=== PATIENT | female | born 1995 ===

== ENCOUNTER 2024-04-27 11:36 | Outpatient (CLI) | payer OTHER | END 2024-04-27 11:39 | disposition home or self-care (01) | LOC: PRENATAL 11:36 | PROVIDERS: ATTEND Obstetrics & Gynecology Maternal & Fetal Medicine | DX: O36.80X0 Pregnancy with inconclusive fetal viability, not applicable or unspecified (principal); Z36.82 Encounter for antenatal screening for nuchal translucency; O34.10 Maternal care for benign tumor of corpus uteri, unspecified trimester; Z3A.11 11 weeks gestation of pregnancy ==

== ENCOUNTER 2024-06-25 10:30 | Outpatient (CLI) | payer OTHER | END 2024-06-25 10:31 | disposition home or self-care (01) | LOC: PRENATAL 10:30 | PROVIDERS: ATTEND Obstetrics & Gynecology Maternal & Fetal Medicine | DX: O35.9XX0 Maternal care for (suspected) fetal abnormality and damage, unspecified, not applicable or unspecified (principal); O35.3XX0 Maternal care for (suspected) damage to fetus from viral disease in mother, not applicable or unspecified; O44.02 Complete placenta previa NOS or without hemorrhage, second trimester; O34.12 Maternal care for benign tumor of corpus uteri, second trimester; Z3A.20 20 weeks gestation of pregnancy ==

== ENCOUNTER 2024-09-17 09:20 | Outpatient (CLI) | payer OTHER | END 2024-09-17 09:21 | disposition home or self-care (01) | LOC: PRENATAL 09:20 | PROVIDERS: ATTEND Obstetrics & Gynecology Maternal & Fetal Medicine | DX: O26.849 Uterine size-date discrepancy, unspecified trimester (principal); O36.8199 Decreased fetal movements, unspecified trimester, other fetus; O34.10 Maternal care for benign tumor of corpus uteri, unspecified trimester; Z3A.32 32 weeks gestation of pregnancy ==

== ENCOUNTER 2024-10-02 17:10 | Outpatient (CLI) | payer OTHER ==
[~2024-10-02] VITALS: Ht 167.6 cm; Wt 96.2 kg
[2024-10-02 17:22] VITALS: BP 105/67
[2024-10-02 19:46] LABS: URINE APPEARANCE Clear; URINE BILIRRUBIN Negative (NEGATIVE); URINE BLOOD Negative; URINE COLOR Yellow; URINE GLUCOSE Negative (NEGATIVE); URINE KETONE Negative (NEGATIVE); URINE LEUKOCYTE Moderate; URINE NITRATE Negative; URINE PROTEIN Negative (NEGATIVE); URINE UROBILINOGEN 0.2 E.U./dl
[2024-10-02 19:46] LABS: HEMATOCRIT 35.5 % (36.0-45.00); MEAN CORPUSCULAR HEMOGLOBIN 30.4 pg (27.00-32.0); MEAN CORPUSCULAR HGB CONC 33.8 g/dl (32.0-36.0); PLATELET COUNT 231 K/uL (150-450); RED BLOOD COUNT 3.94 M/uL (4.00-6.00); RED CELL DISTRIBUTION WIDTH 12.9 % (11.5-14.5)
[2024-10-02 19:48] LABS: URINE BACTERIA 2473.2 uL (0.0-1933); URINE EPITHELIAL CELLS 92.7 uL (0.0-38.8); URINE RBC 2.9 uL (0.0-20.8); URINE WBC 311.2 uL (0.0-23.2)
[2024-10-02 20:00] VITALS: BP 112/73
[2024-10-02 20:07] LABS: URINE CAST 0.61 uL (0.0-1.40)
[2024-10-02 20:13] LABS: INR 0.95; PARTIAL THROMBOPLASTIN TIME 30.2 SECONDS (22.0-34.0); PROTHROMBIN TIME 10.4 SECONDS (9.0-11.5)
[2024-10-02 20:16] LABS: ALBUMIN 2.9 gm/dL (3.4-5.0); BILIRUBIN TOTAL 0.35 mg/dL (0.3-1.2); CALCIUM 8.7 mg/dL (8.5-10.1); CREATININE SERUM 0.5 mg/dL (0.55-1.02); GLOBULINA 3.6 G/DL (2.4-3.5); POTASSIUM 4.05 mEq/L (3.5-5.1); TOTAL PROTEIN 6.5 gm/dL (6.4-8.2)
[2024-10-02] MEDS ORDERED: PRENATAL DHA200 MG PO (20:36)
[2024-10-02] MEDS ORDERED: RINGERS SOLUTION,LACTATED 1,000 ML IV SCH (22:00)
[2024-10-02 23:24] VITALS: BP 94/62
[2024-10-03 03:06] VITALS: BP 92/60
[2024-10-03 06:17] VITALS: BP 110/70; O2SAT 97
== END 2024-10-03 09:38 | disposition home or self-care (01) ==
LOC: LDR 17:10 → OBS/DEL 17:10 → LDR 10-03 09:38 → EDSTATUS 10-09 14:13
PROVIDERS: ATTEND General Practice
DX: O26.893 Other specified pregnancy related conditions, third trimester (principal); O16.3 Unspecified maternal hypertension, third trimester; Z3A.34 34 weeks gestation of pregnancy

== ENCOUNTER 2024-10-16 15:02 | Outpatient (CLI) | payer OTHER ==
[~2024-10-16] VITALS: Ht 167.6 cm; Wt 97.1 kg
[~2024-10-16 15:02] MED LIST: PRENATAL DHA200 MG PO
[2024-10-16 15:56] VITALS: BP 126/84
[2024-10-16] MEDS ORDERED: BETAMETHASONE ACETATE,SOD PHOS 30 MG/5 ML ML IM ONE (16:30)
[2024-10-16 16:52] LABS: MEAN CELL VOLUME 90.1 fL (80.00-100.00); MEAN CORPUSCULAR HEMOGLOBIN 30.8 pg (27.00-32.0); MEAN CORPUSCULAR HGB CONC 34.2 g/dl (32.0-36.0); PLATELET COUNT 241 K/uL (150-450); RED BLOOD COUNT 4.22 M/uL (4.00-6.00)
[2024-10-16 16:52] LABS: PH,URINE 6.5 (5.0-8.0); URINE APPEARANCE Clear; URINE BILIRRUBIN Negative (NEGATIVE); URINE BLOOD Negative; URINE COLOR Yellow; URINE GLUCOSE Negative (NEGATIVE); URINE KETONE Negative (NEGATIVE); URINE LEUKOCYTE Small; URINE NITRATE Negative; URINE PROTEIN Negative (NEGATIVE); URINE UROBILINOGEN 0.2 E.U./dl
[2024-10-16 16:55] LABS: URINE BACTERIA 680.3 uL (0.0-1933); URINE EPITHELIAL CELLS 20.1 uL (0.0-38.8); URINE RBC 3.3 uL (0.0-20.8); URINE WBC 53.9 uL (0.0-23.2)
[2024-10-16 16:56] LABS: URINE CAST 0.29 uL (0.0-1.40)
[2024-10-16 17:22] LABS: INR 0.94; PARTIAL THROMBOPLASTIN TIME 29.9 SECONDS (22.0-34.0); PROTHROMBIN TIME 10.3 SECONDS (9.0-11.5)
[2024-10-16 17:27] LABS: BILIRUBIN TOTAL 0.36 mg/dL (0.3-1.2); CREATININE SERUM 0.6 mg/dL (0.55-1.02); GFR 119.92; GLOBULINA 3.8 G/DL (2.4-3.5); POTASSIUM 4.95 mEq/L (3.5-5.1); TOTAL PROTEIN 6.8 gm/dL (6.4-8.2)
[2024-10-16] MEDS ORDERED: RINGERS SOLUTION,LACTATED 1,000 ML IV SCH (19:00)
[2024-10-16 19:28] VITALS: BP 117/77
[2024-10-16] MEDS ORDERED: PRENATAL TABLE1 EAC1 PO (19:52)
[2024-10-16 23:08] VITALS: BP 110/69
[2024-10-17 04:03] VITALS: BP 104/67
[2024-10-17 06:19] VITALS: BP 104/67; O2SAT 97
[2024-10-17 13:41] VITALS: BP 117/82
[2024-10-17 15:19] VITALS: BP 109/74
[2024-10-17] MEDS ORDERED: BETAMETHASONE ACETATE,SOD PHOS 30 MG/5 ML ML IM NR (16:30)
[2024-10-17] MEDS ORDERED: BETAMETHASONE ACETATE,SOD PHOS 30 MG/5 ML ML IM ONE (16:30)
[2024-10-17 17:13] LABS: CREATININE URINE RANDOM 56.7 MG/DL (30-125); URINE PROT QUANT 24HR 9.6 MG/DL
[2024-10-17 17:23] LABS: URINE PROT QUANT 24 HR 158.4 MG/24HR (42-225)
[2024-10-17 18:15] VITALS: BP 109/74
== END 2024-10-17 18:15 | disposition home or self-care (01) ==
LOC: OBS/DEL 15:02
PROVIDERS: ATTEND General Practice
DX: O13.3 Gestational [pregnancy-induced] hypertension without significant proteinuria, third trimester (principal); O26.849 Uterine size-date discrepancy, unspecified trimester; O36.8199 Decreased fetal movements, unspecified trimester, other fetus; Z3A.35 35 weeks gestation of pregnancy

== ENCOUNTER 2024-10-23 03:25 | Inpatient (IN) | payer OTHER ==
[~2024-10-23] VITALS: Ht 167.6 cm; Wt 95.7 kg
[2024-10-23] VITALS (9 sets, daily range): BP systolic 10–145; BP diastolic 72–99
[~2024-10-23 03:25] MED LIST changes: +PRENATAL TABLE1 EAC1 PO
[2024-10-23] MEDS ORDERED: RINGERS SOLUTION,LACTATED 1,000 ML IV SCH (05:15)
[2024-10-23 05:22] LABS: PH,URINE 6.5 (5.0-8.0); URINE APPEARANCE Clear; URINE BILIRRUBIN Negative (NEGATIVE); URINE BLOOD Negative; URINE COLOR Yellow; URINE GLUCOSE Negative (NEGATIVE); URINE KETONE Negative (NEGATIVE); URINE LEUKOCYTE Negative; URINE NITRATE Negative; URINE PROTEIN Negative (NEGATIVE)
[2024-10-23 05:25] LABS: URINE BACTERIA 143.1 uL (0.0-1933); URINE EPITHELIAL CELLS 14.8 uL (0.0-38.8); URINE RBC 2.3 uL (0.0-20.8); URINE WBC 30.6 uL (0.0-23.2)
[2024-10-23 05:49] LABS: BILIRUBIN TOTAL 0.41 mg/dL (0.3-1.2); CALCIUM 8.9 mg/dL (8.5-10.1); CREATININE SERUM 0.59 mg/dL (0.55-1.02); GFR 122.27; POTASSIUM 4.41 mEq/L (3.5-5.1)
[2024-10-23 06:16] LABS: INR 0.96; PARTIAL THROMBOPLASTIN TIME 29.7 SECONDS (22.0-34.0); PROTHROMBIN TIME 10.5 SECONDS (9.0-11.5)
[2024-10-23 06:30] LABS: HEMATOCRIT 39.6 % (36.0-45.00); HEMOGLOBIN 13.4 g/dL (12.0-15.00); MEAN CELL VOLUME 89.2 fL (80.00-100.00); MEAN CORPUSCULAR HEMOGLOBIN 30.2 pg (27.00-32.0); MEAN CORPUSCULAR HGB CONC 33.9 g/dl (32.0-36.0); PLATELET COUNT 243 K/uL (150-450); RED BLOOD COUNT 4.44 M/uL (4.00-6.00); RED CELL DISTRIBUTION WIDTH 13.2 % (11.5-14.5)
[2024-10-23] MEDS ORDERED: MISOPROSTOL 50 MCG TABLET VAG ONE (08:45)
[2024-10-23] MEDS ORDERED: OXYTOCIN 500 ML IV ONE (11:00)
[2024-10-23] MEDS ORDERED: MORPHINE SULFATE 4 MG/ML VIAL IV ONE (11:00)
[2024-10-23] MEDS ORDERED: CHLORHEXIDINE GLUCONATE 120 ML BOTTLE TP SCH (15:15)
[2024-10-23] MEDS ORDERED: OXYTOCIN 1,000 ML IV SCH (15:15)
[2024-10-23] MEDS ORDERED: ERYTHROMYCIN BASE OPHT 1GM EACH TUBE OP ONE (15:30)
[2024-10-23] MEDS ORDERED: IBUprofen 800 MG TABLET PO PRN (17:00)
[2024-10-24 01:11] VITALS: BP 121/75
[2024-10-24 08:19] VITALS: BP 103/69
[2024-10-24 09:07] LABS: HEMATOCRIT 39.7 % (36.0-45.00); HEMOGLOBIN 13.2 g/dL (12.0-15.00); MEAN CELL VOLUME 89.5 fL (80.00-100.00); MEAN CORPUSCULAR HEMOGLOBIN 29.8 pg (27.00-32.0); MEAN CORPUSCULAR HGB CONC 33.3 g/dl (32.0-36.0); PLATELET COUNT 242 K/uL (150-450); RED BLOOD COUNT 4.43 M/uL (4.00-6.00); RED CELL DISTRIBUTION WIDTH 13.4 % (11.5-14.5)
[2024-10-24 18:21] VITALS: BP 135/85
[2024-10-24 18:23] VITALS: BP 135/85
[2024-10-25 00:39] VITALS: BP 94/60
[2024-10-25 11:00] VITALS: BP 126/82
== END 2024-10-25 15:54 | disposition home or self-care (01) | DRG 807 ==
LOC: LDR 03:25 → OB/GYN 03:25
PROVIDERS: ADMIT Obstetrics & Gynecology; ATTEND Obstetrics & Gynecology
PROC: 10E0XZZ Delivery of Products of Conception, External Approach (ICD-10-PCS; principal; 2024-10-23)
PROC: 4A1HXCZ Monitoring of Products of Conception, Cardiac Rate, External Approach (ICD-10-PCS; 2024-10-23)
PROC: 3E033VJ Introduction of Other Hormone into Peripheral Vein, Percutaneous Approach (ICD-10-PCS; 2024-10-23)
PROC: 3E0P7VZ Introduction of Hormone into Female Reproductive, Via Natural or Artificial Opening (ICD-10-PCS; 2024-10-23)
DX: O13.4 Gestational [pregnancy-induced] hypertension without significant proteinuria, complicating childbirth (principal); Z37.0 Single live birth; Z3A.37 37 weeks gestation of pregnancy; Z20.822 Contact with and (suspected) exposure to COVID-19